=== PATIENT | male | born 1975 | race African-American/Black ===

== ENCOUNTER 2022-08-06 15:41 | Emergency (ER) | payer OTHER ==
[~2022-08-06] VITALS: Ht 170.2 cm; Wt 118.2 kg
[2022-08-06] MEDS ORDERED: KETO10TAB PO (15:55)
[2022-08-06] MEDS ORDERED: CYCL5TAB PO (15:55)
[2022-08-06] MEDS ORDERED: LIDOCAINE 5% (LIDODERM) PATCH TD ONE (20:25)
[2022-08-06] MEDS ORDERED: KETOROLAC 30 MG/ML 1ML VIAL IM ONE (20:25)
[2022-08-06] MEDS ORDERED: LIDO5DIS41 TOP ×2 (21:24→21:34)
[2022-08-06] MEDS ORDERED: METH-1164 PO ×2 (21:25→21:34)
[2022-08-06 21:33] VITALS: BP 158/96
[2022-08-07] MEDS ORDERED: **NOTE PATIENT COMMENT** MISC XX ONE (09:00)
== END 2022-08-06 21:44 | disposition home or self-care (01) ==
LOC: M ED 15:41
DX: M54.16 Radiculopathy, lumbar region (principal); M54.42 Lumbago with sciatica, left side; Z88.0 Allergy status to penicillin
CPT/HCPCS: 96372; 99283; J1885

== ENCOUNTER 2023-10-08 13:28 | Emergency (ER) | payer OTHER ==
[~2023-10-08] VITALS: Ht 170.2 cm; Wt 113.0 kg
[2023-10-08 13:28] VITALS: BP 122/72; TEMP 98.4; O2SAT 97
[~2023-10-08 13:28] MED LIST: CYCL-707 PO; CYCL5TAB PO; KETO10TAB PO; LIDO5DIS41 TOP; METH-1164 PO
== END 2023-10-08 16:00 | disposition left against medical advice (07) ==
LOC: M ED 13:28
DX: Z53.21 Procedure and treatment not carried out due to patient leaving prior to being seen by health care provider (principal)

== ENCOUNTER 2025-06-29 23:26 | Emergency (ER) | payer OTHER ==
[~2025-06-29] VITALS: Ht 170.2 cm; Wt 117.1 kg
[~2025-06-29 23:26] MED LIST changes: -CYCL5TAB PO; +CYCL5TAB4 PO; +LIDO1ADH93 TOP; -LIDO5DIS41 TOP; +MEDR4PAK PO; +PERC5TAB12 PO
[2025-06-30] MEDS: TRIMETHOPRIM/SULFAMETH 80/400 MG TAB PO STA (03:57)
[2025-06-30] MEDS ORDERED: BACT800T5 PO (04:51)
[2025-06-30 05:00] VITALS: BP 141/96; TEMP 97.8; O2SAT 98
== END 2025-06-30 05:15 | disposition home or self-care (01) ==
LOC: M ED 23:26
DX: L03.116 Cellulitis of left lower limb (principal); J45.909 Unspecified asthma, uncomplicated; F17.200 Nicotine dependence, unspecified, uncomplicated; F10.10 Alcohol abuse, uncomplicated; Z79.2 Long term (current) use of antibiotics; Z79.899 Other long term (current) drug therapy; Z88.0 Allergy status to penicillin